=== PATIENT | female | born 1970 | race Caucasian/White ===

== ENCOUNTER 2017-02-15 19:20 | Emergency (ER) | payer OTHER ==
--- NOTE | 2017-02-15 20:05 | DIAGNOSTIC IMAGING REPORT ---
PROCEDURE: XR CHEST 1 VIEW INDICATION: SHORTNESS OF BREATH TECHNIQUE: Single view chest. 1952 hours COMPARISON: 02/29/2016 FINDINGS: The cardiopulmonary contour and central vasculature are stable, within normal limits. The lungs are clear without focal consolidation, pleural effusion or pneumothorax. The osseous structures are intact. Moderate lower thoracic dextroscoliosis contributes to mild thoracic asymmetry. IMPRESSION: 1. No evidence of acute cardiopulmonary disease.
--- NOTE | 2017-02-15 21:41 | ED ORDER SUMMARY ---
..... Patient: SHASTA MANJARREZ [facility] VisitID: [id number] [address] [place] [address] 46y, F Registration Date/Time: 02/15/2017 ORDER SHEET Weight: 84.3 kg (stated) Allergies: Apresoline, IV Contrast GENERAL ORDERS: Chest 1V Urgent (19:34 02/15/2017 Sayda MCLEAN) (Ack 19:45 AMcQuoid ER Tech1) (20:16 RFay) Stitch Bonding Machine Tender Helper (Continuous) (19:34 02/15/2017 Sayda MCLEAN) (Ack 19:46 AMcQuoid ER Tech1) (20:41 CFalkner R.N.) CBC w Diff Urgent (19:35 02/15/2017 Sayda MCLEAN) (19:44 AMcQuoid ER Tech1) CMP Urgent (19:35 02/15/2017 Sayda MCLEAN) (19:44 AMcQuoid ER Tech1) UA-Culture if indicated Urgent (19:35 02/15/2017 Sayda MCLEAN) (Ack 19:45 AMcQuoid ER Tech1) (20:42 CFalkner R.N.) PT with INR Urgent (19:35 02/15/2017 Sayda MCLEAN) (19:44 AMcQuoid ER Tech1) PTT Urgent (19:35 02/15/2017 Sayda MCLEAN) (19:44 AMcQuoid ER Tech1) D-Dimer Urgent (19:35 02/15/2017 Sayda MCLEAN) (19:44 AMcQuoid ER Tech1) Amylase Urgent (19:35 02/15/2017 Sayda MCLEAN) (19:44 AMcQuoid ER Tech1) Lipase Urgent (19:35 02/15/2017 Sayda MCLEAN) (19:44 AMcQuoid ER Tech1) CPK Urgent (19:35 02/15/2017 Sayda MCLEAN) (19:44 AMcQuoid ER Tech1) Troponin-I Urgent (19:35 02/15/2017 Sayda MCLEAN) (19:45 AMcQuoid ER Tech1) Urine Urgent (19:35 02/15/2017 Sayda MCLEAN) (Ack 19:45 AMcQuoid ER Tech1) (20:42 CFalkner R.N.) BNP Urgent (19:35 02/15/2017 Sayda MCLEAN) (19:45 AMcQuoid ER Tech1) Oxygen (2 L/min) (NC) (19:35 02/15/2017 Sayda MCLEAN) (Ack 19:46 AMcQuoid ER Tech1) (20:41 CFalkner R.N.) Pulse oximeter (19:35 02/15/2017 Sayda MCLEAN) (19:41 HSoule) EKG - ER Stat (19:35 02/15/2017 Sayda MCLEAN) (Ack 19:46 MpQuoid ER Tech1) (2:59 JRomanelli R.N.) US Venous Left Urgent (19:59 02/15/2017 Sayda MCLEAN) (Ack 20:03 AMcQuoid ER Tech1) (3:01 JRomanelli R.N.) MEDICATION ORDERS: IV FLUIDS: IV Saline Lock (19:35 02/15/2017 Sayda MCLEAN) (19:41 HSoule) ORDER SHEET NOTES: [Electronically signed by Giovanny Velasquez R.N. (03:04 02/16/2017)] [Electronically signed by Jose Armando Ivy MD (21:32 02/16/2017)] [Electronically locked/signed by Giovanny Velasquez R.N. (03:04 02/16/2017)]
--- NOTE | 2017-02-15 21:41 | ED ORDER SUMMARY ---
..... Patient: SHASTA MANJARREZ OrderSheet [facility] VisitID: [id number] [address] [place] [address] 46y, F Registration Date/Time: 02/15/2017 ORDER SHEET Weight: 84.3 kg (stated) Allergies: Apresoline, IV Contrast GENERAL ORDERS: Chest 1V Urgent (19:34 02/15/2017 Sayda MCLEAN) (Ack 19:45 AMcQuoid ER Tech1) (20:16 RFay) Shucker (Continuous) (19:34 02/15/2017 Sayda MLCEAN) (Ack 19:46 AMcQuoid ER Tech1) (20:41 CFalkner R.N.) CBC w Diff Urgent (19:35 02/15/2017 Sayda MCLEAN) (19:44 AMcQuoid ER Tech1) CMP Urgent (19:35 02/15/2017 Sayda MCLEAN) (19:44 AMcQuoid ER Tech1) UA-Culture if indicated Urgent (19:35 02/15/2017 Sayda MCLEAN) (Ack 19:45 AMcQuoid ER Tech1) (20:42 CFalkner R.N.) PT with INR Urgent (19:35 02/15/2017 Sayda MCLEAN) (19:44 AMcQuoid ER Tech1) PTT Urgent (19:35 02/15/2017 Sayda MCLEAN) (19:44 AMcQuoid ER Tech1) D-Dimer Urgent (19:35 02/15/2017 Sayda MCLEAN) (19:44 AMcQuoid ER Tech1) Amylase Urgent (19:35 02/15/2017 Sayda MCLEAN) (19:44 AMcQuoid ER Tech1) Lipase Urgent (19:35 02/15/2017 Sayda MCLEAN) (19:44 AMcQuoid ER Tech1) CPK Urgent (19:35 02/15/2017 Sayda MCLEAN) (19:44 AMcQuoid ER Tech1) Troponin-I Urgent (19:35 02/15/2017 Sayda MCLEAN) (19:45 AMcQuoid ER Tech1) Urine Urgent (19:35 02/15/2017 Sayda MCLEAN) (Ack 19:45 AMcQuoid ER Tech1) (20:42 CFalkner R.N.) BNP Urgent (19:35 02/15/2017 Sayda MCLEAN) (19:45 AMcQuoid ER Tech1) Oxygen (2 L/min) (NC) (19:35 02/15/2017 Sayda MCLEAN) (Ack 19:46 AMcQuoid ER Tech1) (20:41 CFalkner R.N.) Pulse oximeter (19:35 02/15/2017 Sayda MCLEAN) (19:41 HSoule) EKG - ER Stat (19:35 02/15/2017 Sayda MCLEAN) (Ack 19:46 MpQuoid ER Tech1) (2:59 JRomanelli R.N.) US Venous Left Urgent (19:59 02/15/2017 Sayda MCLEAN) (Ack 20:03 AMcQuoid ER Tech1) (3:01 JRomanelli R.N.) MEDICATION ORDERS: IV FLUIDS: IV Saline Lock (19:35 02/15/2017 Sayda MCLEAN) (19:41 HSoule) ORDER SHEET NOTES: [Electronically signed by Giovanny Velasquez R.N. (03:04 02/16/2017)] [Electronically signed by Jose Armando Ivy MD (21:32 02/16/2017)] [Electronically locked/signed by Giovanny Velasquez R.N. (03:04 02/16/2017)]
--- NOTE | 2017-02-15 21:41 | ED NURSING NOTES ---
Clinical Report - Nurses [facility] [address] [place] [address] 02/15/2017 19:21 Patient: SHASTA MANJARREZ TRIAGE Triage time 19:28 Feb 15 2017. Acuity: LEVEL 3. Chief Complaint: SHORTNESS OF BREATH. Alert. NICOLETTE COMA SCORE: Nicolette Coma Scale: 15- eyes open spontaneously (4); best verbal response- oriented x 4 (5); best motor response- obeys commands (6). --19:42 Giovanny Velasquez R.N. 19:28 02/15/17. BP: 123/73. HR: 108. RR: 18. O2 saturation: 99% on room air. Temp: 98.1 F (oral). Pain level now: 4/10. Additional comments: Tingling/Swelling (L) Knee. --19:42 Giovanny Velasquez R.N. Weight: 84.3 kg stated. Height/Length: 64 inches Per Patient. BMI: 31.9. --19:29 Giovanny Velasquez R.N. Medications Lisinopril Oral 10 mg, daily. Omeprazole Oral 20 mg, daily. PredniSONE Oral 8 mg, daily. Remeron Oral 7.5 mg, daily. Warfarin Sodium Oral 4 mg, daily (M,W,F then 5mg on the other days). Xanax Oral, as needed. --19:35 Giovanny Velasquez R.N. Flonase Nasal 2 sprays, daily. --19:40 Giovanny Velasquez R.N. Allergies Apresoline. Definite Severe IV Contrast. Definite Severe --19:35 Giovanny Velasquez R.N. The following entry was struck and corrected by Giovanny Velasquez R.N., 19:40 (02/15/17) Reason for correction - other(correction). <<STRICKEN ENTRY-- IV Contrast. --19:35 Giovanny Velasquez R.N. --END STRIKE>>. Medication/allergy information source: the patient. --19:42 Giovanny Velasquez R.N. History Arrived by private vehicle. Historian: patient. Accompanied by spouse. Primary physician (Moira). ( Increased SOB and "massive swelling" behind the (L) knee. Also bilat Ear ache). Treatment VALET PARKER: None. SOCIAL HX: Light tobacco smoker (cigarette)- less than 1/2 a pack per day. No alcohol use or drug use. No infectious disease exposure. ABUSE ASSESSMENT: No report of abuse. SELF HARM ASSESSMENT: A self harm assessment was performed. The patient answered "no" to the question "Have you recently felt down, depressed, or hopeless?" and "Have you noticed less interest or pleasure in doing things?". FALL RISK ASSESSMENT: Fall risk assessment completed. No fall risk identified. NUTRITIONAL RISK ASSESSMENT: The nutritional risk assessment revealed no deficiencies. FUNCTIONAL ASSESSMENT: Functional assessment: no impairments noted. LEARNING NEEDS ASSESSMENT: The learning needs assessment revealed no barriers. SKIN INTEGRITY ASSESSMENT: Skin integrity risk assessment completed. No skin integrity risk identified. --19:42 Giovanny Velasquez R.N. PROBLEMS: Chest Wall Pain. DVT - Deep Venous Thrombosis. Cardiovascular Risk Factors. Pulmonary Embolism. Hypertension. Anxiety Reaction. Rheumatoid Arthritis. --19:38 Giovanny Velasquez R.N. ADDITIONAL SURGERIES: Right Knee surgery. Tonsillectomy. --19:38 Giovanny Velasquez R.N. Interventions ID band on patient. To treatment room. --19:42 Giovanny Velasquez R.N. PHYSICAL ASSESSMENT Ambulatory to room. GENERAL / NEURO / PSYCH: Alert. Oriented X 4. HEENT: Mucous membranes are pink. RESPIRATORY: No respiratory distress. Respirations not labored. CVS: Cardiac rhythm: sinus tachycardia. GI / : Abdomen soft. Bowel sounds within normal limits. SKIN: Skin is warm and dry. Normal skin turgor. --19:43 Giovanny Velasquez R.N. NURSING PROGRESS NOTES 19:36 02/15/2017 Site #1 started via IV in the right antecubital space with an 20g angiocath, with aseptic technique and good blood return; one attempt. Blood drawn: rainbow set. Labeled in the presence of the patient and sent to the lab. Saline lock flushed with 10 mL saline. --19:41 Vanessa Titus Patient gowned. Reassurance given. Patient identifiers checked. Call light placed in reach. Side rails up. Bed placed in lowest position. Brakes of bed on. Patient ready for evaluation- chart flagged and ED physician notified. --19:43 Giovanny Velasquez R.N. 20:31 02/15/17. BP: 120/77. HR: 90. RR: 16. O2 saturation: 98%. --20:32 Giovanny Velasquez R.N. 20:35 02/15/17. Critical value relayed to ED by Ailin Sutton. Critical value received by Giovanny Velasquez RN. D-Dimer--5.24. --20:35 Giovanny Velasquez R.N. EKG time: (19:59). EKG was performed by a tech and shown to the ED physician. --23:36 Chikis Ervin 21:30 02/15/17. BP: 127/63. HR: 97. RR: 16. O2 saturation: 99% on nasal cannula. Pain level now: 0/10. --02:50 Giovanny Velasquez R.N. 22:05 02/15/2017 Site #1 removed upon discharge. Catheter intact. Pressure dressing, bandaid and bandage applied. --03:01 Giovanny Velasquez R.N. 20:45. ( dentures lab technician in room doing procedure). --03:03 Giovanny Velasquez R.N. DISPOSITION / DISCHARGE Departure time: 2209. --22:41 Giovanny Velasquez R.N. 22:00 02/15/17. BP: 120/77. HR: 85. RR: 16. O2 saturation: 99% on room air. Temp: 98.6 F (oral). Pain level now: 0/10. --02:53 Giovanny Velasquez R.N. 22:10. Condition at departure: improved. No learning barriers present. Discharge instructions provided and reviewed with the patient and spouse. Reviewed medication(s) (Continue your usually prescribed medications). Reviewed referral to family practice. Patient verbalized understanding. Written instructions provided in Syriac. The patient was discharged by the physician. She was discharged home and accompanied by spouse. She left the Emergency Department ambulatory and via private vehicle. Spouse driving. --02:59 Giovanny Velasquez R.N. Locked/Released at 02/16/2017 3:04 by Giovanny Velasquez R.N.
--- NOTE | 2017-02-15 21:41 | ED NURSING NOTES ---
Clinical Report - Nurses [facility] [address] [place] [address] 02/15/2017 19:21 Patient: SHASTA MANJARREZ TRIAGE Triage time 19:28 Feb 15 2017. Acuity: LEVEL 3. Chief Complaint: SHORTNESS OF BREATH. Alert. NICOLETTE COMA SCORE: Nicolette Coma Scale: 15- eyes open spontaneously (4); best verbal response- oriented x 4 (5); best motor response- obeys commands (6). --19:42 Giovanny Velasquez R.N. 19:28 02/15/17. BP: 123/73. HR: 108. RR: 18. O2 saturation: 99% on room air. Temp: 98.1 F (oral). Pain level now: 4/10. Additional comments: Tingling/Swelling (L) Knee. --19:42 Giovanny Velasquez R.N. Weight: 84.3 kg stated. Height/Length: 64 inches Per Patient. BMI: 31.9. --19:29 Giovanny Velasquez R.N. Medications Lisinopril Oral 10 mg, daily. Omeprazole Oral 20 mg, daily. PredniSONE Oral 8 mg, daily. Remeron Oral 7.5 mg, daily. Warfarin Sodium Oral 4 mg, daily (M,W,F then 5mg on the other days). Xanax Oral, as needed. --19:35 Giovanny Velasquez R.N. Flonase Nasal 2 sprays, daily. --19:40 Giovanny Velasquez R.N. Allergies Apresoline. Definite Severe IV Contrast. Definite Severe --19:35 Giovanny Velasquez R.N. The following entry was struck and corrected by Giovanny Velasquez R.N., 19:40 (02/15/17) Reason for correction - other(correction). <<STRICKEN ENTRY-- IV Contrast. --19:35 Giovanny Velasquez R.N. --END STRIKE>>. Medication/allergy information source: the patient. --19:42 Giovanny Velasquez R.N. History Arrived by private vehicle. Historian: patient. Accompanied by spouse. Primary physician (Moira). ( Increased SOB and "massive swelling" behind the (L) knee. Also bilat Ear ache). Treatment EDUCATION AND DEVELOPMENT MANAGER: None. SOCIAL HX: Light tobacco smoker (cigarette)- less than 1/2 a pack per day. No alcohol use or drug use. No infectious disease exposure. ABUSE ASSESSMENT: No report of abuse. SELF HARM ASSESSMENT: A self harm assessment was performed. The patient answered "no" to the question "Have you recently felt down, depressed, or hopeless?" and "Have you noticed less interest or pleasure in doing things?". FALL RISK ASSESSMENT: Fall risk assessment completed. No fall risk identified. NUTRITIONAL RISK ASSESSMENT: The nutritional risk assessment revealed no deficiencies. FUNCTIONAL ASSESSMENT: Functional assessment: no impairments noted. LEARNING NEEDS ASSESSMENT: The learning needs assessment revealed no barriers. SKIN INTEGRITY ASSESSMENT: Skin integrity risk assessment completed. No skin integrity risk identified. --19:42 Giovanny Velasquez R.N. PROBLEMS: Chest Wall Pain. DVT - Deep Venous Thrombosis. Cardiovascular Risk Factors. Pulmonary Embolism. Hypertension. Anxiety Reaction. Rheumatoid Arthritis. --19:38 Giovanny Velasquez R.N. ADDITIONAL SURGERIES: Right Knee surgery. Tonsillectomy. --19:38 Giovanny Velasquez R.N. Interventions ID band on patient. To treatment room. --19:42 Giovanny Velasquez R.N. PHYSICAL ASSESSMENT Ambulatory to room. GENERAL / NEURO / PSYCH: Alert. Oriented X 4. HEENT: Mucous membranes are pink. RESPIRATORY: No respiratory distress. Respirations not labored. CVS: Cardiac rhythm: sinus tachycardia. GI / : Abdomen soft. Bowel sounds within normal limits. SKIN: Skin is warm and dry. Normal skin turgor. --19:43 Giovanny Velasquez R.N. NURSING PROGRESS NOTES 19:36 02/15/2017 Site #1 started via IV in the right antecubital space with an 20g angiocath, with aseptic technique and good blood return; one attempt. Blood drawn: rainbow set. Labeled in the presence of the patient and sent to the lab. Saline lock flushed with 10 mL saline. --19:41 Vanessa Titus Patient gowned. Reassurance given. Patient identifiers checked. Call light placed in reach. Side rails up. Bed placed in lowest position. Brakes of bed on. Patient ready for evaluation- chart flagged and ED physician notified. --19:43 Giovanny Velasquez R.N. 20:31 02/15/17. BP: 120/77. HR: 90. RR: 16. O2 saturation: 98%. --20:32 Giovanny Velasquez R.N. 20:35 02/15/17. Critical value relayed to ED by Ailin Sutton. Critical value received by Giovanny Velasquez RN. D-Dimer--5.24. --20:35 Giovanny Velasquez R.N. EKG time: (19:59). EKG was performed by a tech and shown to the ED physician. --23:36 Chikis Evrin 21:30 02/15/17. BP: 127/63. HR: 97. RR: 16. O2 saturation: 99% on nasal cannula. Pain level now: 0/10. --02:50 Giovanny Velasquez R.N. 22:05 02/15/2017 Site #1 removed upon discharge. Catheter intact. Pressure dressing, bandaid and bandage applied. --03:01 Giovanny Vleasquez R.N. 20:45. ( senior technical specialist in room doing procedure). --03:03 Giovanny Velasquez R.N. DISPOSITION / DISCHARGE Departure time: 2209. --22:41 Giovanny Velasquez R.N. 22:00 02/15/17. BP: 120/77. HR: 85. RR: 16. O2 saturation: 99% on room air. Temp: 98.6 F (oral). Pain level now: 0/10. --02:53 Giovanny Velasquez R.N. 22:10. Condition at departure: improved. No learning barriers present. Discharge instructions provided and reviewed with the patient and spouse. Reviewed medication(s) (Continue your usually prescribed medications). Reviewed referral to family practice. Patient verbalized understanding. Written instructions provided in Romansh. The patient was discharged by the physician. She was discharged home and accompanied by spouse. She left the Emergency Department ambulatory and via private vehicle. Spouse driving. --02:59 Giovanny Velasquez R.N. Locked/Released at 02/16/2017 3:04 by Giovanny Velasquez R.N.
--- NOTE | 2017-02-15 21:41 | ED CLINICAL REPORT ---
Clinical Report - Physicians/Mid Levels [facility] [address] [place] [address] 02/15/2017 19:21 Patient: SHASTA MANJARREZ Time Seen: 19:34. Arrived- By private vehicle. Historian- patient. HISTORY OF PRESENT ILLNESS Chief Complaint: DYSPNEA. This started just prior to arrival and is still present but is better now. It was abrupt in onset. The dyspnea is described as mild. The patient has had a cough, left foot swelling and anxiety and experienced sweating episodes. She has had scant amounts of sputum (she attributes this a current sinus and bilateral ear infection). No fever, wheezing, chills or dyspnea on exertion. No chest pain or discomfort. (she attributes her SOB to anxiety). REVIEW OF SYSTEMS Last normal menstrual period was 2 weeks ago. All systems otherwise negative, except as recorded above. PAST HISTORY PCP - Karen She reports a history of significant anemia. She says that her hemoglobin and hematocrit today are stable for her. She takes iron sulfate for this. Problems: Chest Wall Pain. Back Pain. DVT - Deep Venous Thrombosis. Cardiovascular Risk Factors. Pulmonary Embolism. Arthritis. Hypertension. Anxiety Reaction. Rheumatoid Arthritis. Additional Surgeries: Knee Surgery. Right Knee surgery. Tonsillectomy. Medications: Flonase Nasal 2 sprays, daily. Lisinopril Oral 10 mg, daily. Omeprazole Oral 20 mg, daily. PredniSONE Oral 8 mg, daily. Remeron Oral 7.5 mg, daily. Warfarin Sodium Oral 4 mg, daily (M,W,F then 5mg on the other days). Xanax Oral, as needed. Allergies: Apresoline. Definite Severe IV Contrast. Definite Severe. SOCIAL HISTORY Current every day heavy tobacco smoker (cigarette)- less than 1 pack per day. No alcohol use or drug use. Is a local resident. She lives with spouse. FAMILY HISTORY Hypertension in first-degree relative (mother, father and sibling) and grandparent; premature onset heart disease in first-degree relative (father); stroke in first-degree relative (father) and grandparent; cancer in first-degree relative (mother). ADDITIONAL NOTES The nursing notes have been reviewed. PHYSICAL EXAM Vital Signs: 02/15/2017 19:28 BP: 123/73. HR: 108. RR: 18. O2 saturation: 99%. Temp: 98.1 F. Pain level now: 10. Have been reviewed. Appearance: Alert. Anxious. Eyes: Pupils equal, round and reactive to light. ENT: Pharynx normal. Uvula midline. Neck: Normal inspection. No jugular venous distention. Neck supple. CVS: Normal heart rate and rhythm. Heart sounds normal. Respiratory: No respiratory distress. Breath sounds normal. Abdomen: Soft and nontender. No organomegaly. Back: Normal inspection. No CVA tenderness. Skin: Skin warm and dry. Normal skin color. Normal skin turgor. Extremities: Extremities exhibit normal ROM. No calf tenderness. Left knee: mild tenderness and severe swelling. Neurovascular intact distally. No ligamentous laxity present. No joint effusion. No erythema. LABS, X-RAYS, AND EKG EKG: Rate: 107. Prior EKG unavailable. The study has been independently viewed by me. Chest X-ray: (IMPRESSION: 1. No evidence of acute cardiopulmonary disease.). The X-rays were interpreted by the radiologist and contemporaneously by me. Duplex Ultrasound: Left lower extremity study. Negative results. The study was independently viewed by me. Laboratory Tests: CBC w Diff: (IMANI: 02/15/2017 19:35) ( MsgRcvd 02/15/2017 21:02) Final results Test Result Flag Units (Reference) WHITE BLOOD COUNT 9.7 K/uL (4.5-11.5) RED BLOOD COUNT 5.28 H M/uL (4.00-5.20) HEMOGLOBIN 8.6 L gm/dL (12.0-16.0) HEMATOCRIT 29.3 L % (36.0-46.0) MEAN CELL VOLUME 56 L fL (80-100) MEAN CORPUSCULAR HGB 16 L pg (26-34) MEAN CORPUSCULAR HGB CONC 30 L g/dL (31-37) RED CELL DISTRIBUTION WIDTH 20.7 H % (11.6-14.8) PLATELET COUNT 388 K/uL (150-400) NEUTROPHIL % 81.0 H % (50-75) LYMPH % 13.6 L % (25-40) MONO % 4.8 % (3-14) EOSINOPHIL % 0.3 % (0-4) BASOPHIL % 0.3 % (0-2) RBC MORPHOLOGY 1+ SCHISTOCYTES~~3+ ANISOCYTES~~3+ HYPOCHROMIA~~1+ OVALOCYTES~~1+ TARGETS~~4+ MICROCYTOSIS~~PLTS ADQ PT with INR: (IMANI: 02/15/2017 19:35) ( MsgRcvd 02/15/2017 20:33) Final results Test Result Flag Units (Reference) INR 2.5 H (0.8-1.2) Low Intensity Therapy: INR 1.5-2.0 PT range 18.5-23.1Mod.Intensity Therapy: INR 2.0-3.0 PT range 23.1-31.5High Intensity Therapy: INR 2.5-3.5 PT range 27.4-35.5High Intensity Therapy 2: INR 3.0-4.0 PT range 31.5-39.3 APTT 33 SECONDS (24-34) D-DIMER QUANTITATIVE 5.24 *H ug/mLFEU (0.27-0.52) CRITICAL RESULTS CALLEDCalled to [facility] 02/15/172031Were 2 patient identifiers used? YWas the result read back? YThe primary value of this quantitative assay relates toits negative predictive value (i.e. exclusion) of pulmonaryembolism/deep vein thrombosis/DIC.Elevated levels of d-dimer may also occur with:, age, cancer, inflammation, liver disease,post-op, infection, hematoma, coronary disease, peripheralarteriopathy, bleeding disorders and thrombolytic treatment.Results should be correlated with other clinical andradiological data.Testing Methodology: Latex Immunoassay BNP: (IMANI: 02/15/2017 19:35) ( [facility]16) Final results Test Result Flag Units (Reference) B-TYPE NATRIURETIC PEPTIDE < 5.0 L pg/ml (5-100) CMP: (IMANI: 02/15/2017 19:35) ( MsgRcvd 02/15/2017 20:39) Final results Test Result Flag Units (Reference) GLUCOSE 120 H mg/dL (70-110) BUN 11 mg/dL (7-18) CREATININE 0.7 mg/dL (0.6-1.3) Estimated GFR >60 mL/min Estimated GFR- >60 mL/min Note: Persistent reduction over 3 months in eGFR<60 mL/min/1.73 m2 defines CKD. Patients with eGFR values>=60 mL/min/1.73 m2 may also have CKD if evidence ofpersistent proteinuria. Additional information may be foundat www.kidney.org. SODIUM 137 mmol/L (136-145) POTASSIUM 4.1 mmol/L (3.5-5.1) CHLORIDE 102 mmol/L (98-107) CARBON DIOXIDE 24 mmol/L (21-32) CALCIUM 9.0 mg/dL (8.5-10.1) TOTAL PROTEIN 7.5 g/dL (6.4-8.2) ALBUMIN 3.7 g/dL (3.3-5.0) BILIRUBIN, TOTAL 0.3 mg/dL (0.0-1.0) ALKALINE PHOSPHATASE 71 U/L (46-116) AST (SGOT) 16 U/L (15-37) ALT (SGPT) 28 U/L (12-78) LIPASE 300 U/L (73-393) AMYLASE 65 U/L (25-115) CPK 35 U/L (24-260) TROPONIN I <0.05 L ng/mL (0.00-1.5) TROPONIN REFERENCE RANGE:<0.1 NEGATIVE0.1-1.5 INDETERMINANT>1.5 POSITIVE . PROGRESS AND PROCEDURES Course of Care: We discussed potential benefits and risks of CT angiogram and imaging. The patient says that she does not have chest pain does not feel shortness of breath. She does not want to have CT imaging done and she has had many of these in the past and she feels that since she is therapeutic on Coumadin the risk of CT imaging outweighs the potential benefits. She acknowledges the risk of a missed or erroneous diagnosis. She is having difficulty breathing (she says that this is completely resolved. She attributed that that she was feeling earlier to her anxiety.). Patient/family counseled. Old medical records ordered. Disposition: Discharged. Condition: stable. CLINICAL IMPRESSION Chronic anemia. Rheumatoid arthritis involving the left knee. INSTRUCTIONS Do not smoke- benefits of smoking cessation discussed (>3 -10 minutes). Seek medical help to quit smoking. Warnings: Further evaluation is necessary. GENERAL WARNINGS: Return or contact your physician immediately if your condition worsens or changes unexpectedly, if not improving as expected, or if other problems arise. Your Current Medications: CONTINUE TAKING THE FOLLOWING MEDICATIONS: Flonase Nasal : 2 sprays daily. Lisinopril Oral : 10 mg daily. Omeprazole Oral : 20 mg daily. PredniSONE Oral : 8 mg daily. Remeron Oral : 7.5 mg daily. Warfarin Sodium Oral : 4 mg daily, M,W,F then 5mg on the other days. Xanax Oral : prn. Follow-up: Follow up with your doctor. Understanding of the discharge instructions verbalized by patient and family. Follow-up with: Joel Maynard MD, [facility], , [address] [place] [address] Follow up in seven days. Call for the next available appointment. (Electronically signed by Jose Armando Ivy MD 02/16/2017 21:32)
--- NOTE | 2017-02-15 22:08 | DIAGNOSTIC IMAGING REPORT ---
PROCEDURE: US VENOUS - LEFT EXT INDICATION: PAIN TECHNIQUE: Duplex sonography of the deep venous system in the left lower extremity was performed. Compression and augmentation techniques were used. COMPARISON: 02/19/2014 FINDINGS: Each interrogated segment of deep vein from the common femoral vein into the calf veins demonstrates normal compressibility, augmentation and/or color Doppler flow without filling defect. No evidence of significant soft-tissue edema, soft-tissue mass or cyst. IMPRESSION: 1. No deep venous thrombosis in the left lower extremity.
--- NOTE | 2017-02-16 21:32 | ED MED RECONCILIATION SUMMARY ---
Patient: NONI MANJARREZNIFER Sita Medication Reconciliation Report [facility] VisitID: [id number] [address] [place] [address] 46y, F Registration Date/Time: 02/15/2017 Weight: 84.3 kg Height/Length: 64 in. BMI: 31.9 ALLERGIES: Apresoline, IV Contrast The patient's Home Medications are listed below: CONTINUE TAKING THE FOLLOWING MEDICATIONS: Flonase Nasal 2 sprays, daily Lisinopril Oral 10 mg, daily Omeprazole Oral 20 mg, daily PredniSONE Oral 8 mg, daily Remeron Oral 7.5 mg, daily Warfarin Sodium Oral 4 mg, daily, M,W,F then 5mg on the other days Xanax Oral The source(s) of the original Home Medication information: patient The following Medications were given to the patient in the Emergency Department: None. The following Medications were prescribed to the patient: None.
--- NOTE | 2017-02-16 21:32 | ED MAR SUMMARY ---
..... Medication Administration Record [facility] [address] [place], [place] [id number] Patient: SHASTA MANJARREZ Visit ID: [id number] 46y, F Weight: 84.3 kg Height/Length: 64 in BMI: 31.9 ALLERGIES: Apresoline, IV Contrast
--- NOTE | 2017-02-16 21:32 | ED DISCHARGE INSTRUCTIONS ---
Patient: SHASTA MANJARREZ General Instructions [facility] VisitID: [id number] [address] [place] [address] 46y, F Registration Date/Time: 02/15/2017 Chronic anemia. Rheumatoid arthritis involving the left knee. INSTRUCTIONS Do not smoke- benefits of smoking cessation discussed (>3 -10 minutes). Seek medical help to quit smoking. Warnings: Further evaluation is necessary. GENERAL WARNINGS: Return or contact your physician immediately if your condition worsens or changes unexpectedly, if not improving as expected, or if other problems arise. Your Current Medications: CONTINUE TAKING THE FOLLOWING MEDICATIONS: Flonase Nasal : 2 sprays daily. Lisinopril Oral : 10 mg daily. Omeprazole Oral : 20 mg daily. PredniSONE Oral : 8 mg daily. Remeron Oral : 7.5 mg daily. Warfarin Sodium Oral : 4 mg daily, M,W,F then 5mg on the other days. Xanax Oral : prn. Follow-up: Follow up with your doctor. Understanding of the discharge instructions verbalized by patient and family. Follow-up with: Joel Maynard MD, [facility], , [address] [place], [place] [id number] Follow up in seven days. Call for the next available appointment. ADDITIONAL INFORMATION How To Quit Smoking Smoking is one of the hardest habits to break. About half of all those who have ever smoked have been able to quit, and most of those (about 70%) who still smoke want to quit. Here are some of the best ways to stop smoking. Keep Trying: It takes most smokers about 8 tries before they are finally able to fully quit. So, the more often you try and fail, the better your chance of quitting the next time! So, don't give up! Go Cold [place]: Most ex-smokers quit cold turkey. Trying to cut back gradually doesn't seem to work as well, perhaps because it continues the smoking habit. Also, it is possible to fool yourself by inhaling more while smoking fewer cigarettes. This results in the same amount of nicotine in your body! Get Support: Support programs can make an important difference, especially for the heavy smoker. These groups offer lectures, methods to change your behavior and peer support. Call the free national Quitline for more information. 124-LSOW-TPP (170-624-2373). Low-cost or free programs are offered by many hospitals, local chapters of the [place] [employer] (152-873-6695) and the [place] [employer] (427-760-8099). Support at home is important too. Non-smokers can help by offering praise and encouragement. If the smoker fails to quit, encourage them to try again! Ngfg-Wun-Kqewgmf Medicines: For those who can't quit on their own, Nicotine Replacement Therapy (NRT) may make quitting much easier. Certain aids such as the nicotine patch, gum and lozenge are available without a prescription. However, it is best to use these under the guidance of your doctor. The skin patch provides a steady supply of nicotine to the body. Nicotine gum and lozenge gives temporary bursts of low levels of nicotine. Both methods take the edge off the craving for cigarettes. WARNING: If you feel symptoms of nicotine overdose, such as nausea, vomiting, dizziness, weakness, or fast heartbeat, stop using these and see your doctor. Prescription Medicines: After evaluating your smoking patterns and prior attempts at quitting, your doctor may offer a prescription medicine such as bupropion (Zyban, Wellbutrin), varenicline (Chantix, Champix), a niocotine inhaler or nasal spray. Each has its unique advantage and side effects which your doctor can review with you. Health Benefits Of Quitting: The benefits of quitting start right away and keep improving the longer you go without smokin minutes: blood pressure and pulse return to normal 8 hours: oxygen levels return to normal 2 days: ability to smell and taste begins to improve as damaged nerves start to regrow 2-3 weeks: circulation and lung function improves 1-9 months: decreased cough, congestion and shortness of breath; less tired 1 year: risk of heart attack decreases by half 5 years: risk of lung cancer decreases by half; risk of stroke becomes the same as a non-smoker For information about how to quit smoking, visit the following links: National Cancer [place] , Clearing the Air, Quit Smoking Today - an online booklet. http://www.smokefree.gov/pubs/clearing_the_air.pdf Smokefree.gov http://smokefree.gov/ QuitNet http://www.quitnet.com/ You have been given the following additional information: Smoking Cessation (Electronically signed by Jose Armando Ivy MD 02/16/2017 21:32)
--- NOTE | 2017-02-16 21:32 | ED MAR SUMMARY ---
..... Medication Administration Record [facility] [address], [place] [id number] Patient: SHASTA MANJARREZ Visit ID: [id number] 46y, F Weight: 84.3 kg Height/Length: 64 in BMI: 31.9 ALLERGIES: Apresoline, IV Contrast
--- NOTE | 2017-02-16 21:32 | ED DISCHARGE INSTRUCTIONS ---
Patient: SHASTA MANJARREZ General Instructions [facility] VisitID: [id number] [address] [place] [address] 46y, F Registration Date/Time: 02/15/2017 Chronic anemia. Rheumatoid arthritis involving the left knee. INSTRUCTIONS Do not smoke- benefits of smoking cessation discussed (>3 -10 minutes). Seek medical help to quit smoking. Warnings: Further evaluation is necessary. GENERAL WARNINGS: Return or contact your physician immediately if your condition worsens or changes unexpectedly, if not improving as expected, or if other problems arise. Your Current Medications: CONTINUE TAKING THE FOLLOWING MEDICATIONS: Flonase Nasal : 2 sprays daily. Lisinopril Oral : 10 mg daily. Omeprazole Oral : 20 mg daily. PredniSONE Oral : 8 mg daily. Remeron Oral : 7.5 mg daily. Warfarin Sodium Oral : 4 mg daily, M,W,F then 5mg on the other days. Xanax Oral : prn. Follow-up: Follow up with your doctor. Understanding of the discharge instructions verbalized by patient and family. Follow-up with: Joel Maynard MD, [facility], , [address] [place], [place] [id number] Follow up in seven days. Call for the next available appointment. ADDITIONAL INFORMATION How To Quit Smoking Smoking is one of the hardest habits to break. About half of all those who have ever smoked have been able to quit, and most of those (about 70%) who still smoke want to quit. Here are some of the best ways to stop smoking. Keep Trying: It takes most smokers about 8 tries before they are finally able to fully quit. So, the more often you try and fail, the better your chance of quitting the next time! So, don't give up! Go Cold [place]: Most ex-smokers quit cold turkey. Trying to cut back gradually doesn't seem to work as well, perhaps because it continues the smoking habit. Also, it is possible to fool yourself by inhaling more while smoking fewer cigarettes. This results in the same amount of nicotine in your body! Get Support: Support programs can make an important difference, especially for the heavy smoker. These groups offer lectures, methods to change your behavior and peer support. Call the free national Quitline for more information. 053-YAUL-LTC (567-051-4905). Low-cost or free programs are offered by many hospitals, local chapters of the [place] [employer] (342-820-9290) and the [place] [employer] (422-647-4001). Support at home is important too. Non-smokers can help by offering praise and encouragement. If the smoker fails to quit, encourage them to try again! Vbay-Vlg-Pnktjnp Medicines: For those who can't quit on their own, Nicotine Replacement Therapy (NRT) may make quitting much easier. Certain aids such as the nicotine patch, gum and lozenge are available without a prescription. However, it is best to use these under the guidance of your doctor. The skin patch provides a steady supply of nicotine to the body. Nicotine gum and lozenge gives temporary bursts of low levels of nicotine. Both methods take the edge off the craving for cigarettes. WARNING: If you feel symptoms of nicotine overdose, such as nausea, vomiting, dizziness, weakness, or fast heartbeat, stop using these and see your doctor. Prescription Medicines: After evaluating your smoking patterns and prior attempts at quitting, your doctor may offer a prescription medicine such as bupropion (Zyban, Wellbutrin), varenicline (Chantix, Champix), a niocotine inhaler or nasal spray. Each has its unique advantage and side effects which your doctor can review with you. Health Benefits Of Quitting: The benefits of quitting start right away and keep improving the longer you go without smokin minutes: blood pressure and pulse return to normal 8 hours: oxygen levels return to normal 2 days: ability to smell and taste begins to improve as damaged nerves start to regrow 2-3 weeks: circulation and lung function improves 1-9 months: decreased cough, congestion and shortness of breath; less tired 1 year: risk of heart attack decreases by half 5 years: risk of lung cancer decreases by half; risk of stroke becomes the same as a non-smoker For information about how to quit smoking, visit the following links: National Cancer [place] , Clearing the Air, Quit Smoking Today - an online booklet. http://www.smokefree.gov/pubs/clearing_the_air.pdf Smokefree.gov http://smokefree.gov/ QuitNet http://www.quitnet.com/ You have been given the following additional information: Smoking Cessation (Electronically signed by Jose Armando Ivy MD 02/16/2017 21:32)
--- NOTE | 2017-02-16 21:32 | ED MED RECONCILIATION SUMMARY ---
Patient: NONI MANJARREZNIFER Sita Medication Reconciliation Report [facility] VisitID: [id number] [address] [place] [address] 46y, F Registration Date/Time: 02/15/2017 Weight: 84.3 kg Height/Length: 64 in. BMI: 31.9 ALLERGIES: Apresoline, IV Contrast The patient's Home Medications are listed below: CONTINUE TAKING THE FOLLOWING MEDICATIONS: Flonase Nasal 2 sprays, daily Lisinopril Oral 10 mg, daily Omeprazole Oral 20 mg, daily PredniSONE Oral 8 mg, daily Remeron Oral 7.5 mg, daily Warfarin Sodium Oral 4 mg, daily, M,W,F then 5mg on the other days Xanax Oral The source(s) of the original Home Medication information: patient The following Medications were given to the patient in the Emergency Department: None. The following Medications were prescribed to the patient: None.
== END 2017-02-15 22:10 | disposition home or self-care (01) ==
LOC: ED SRH 19:20
DX: D64.9 Anemia, unspecified (principal); M06.9 Rheumatoid arthritis, unspecified; R06.00 Dyspnea, unspecified; F41.9 Anxiety disorder, unspecified; I10 Essential (primary) hypertension; Z86.711 Personal history of pulmonary embolism; Z86.718 Personal history of other venous thrombosis and embolism; Z79.01 Long term (current) use of anticoagulants; Z79.899 Other long term (current) drug therapy; Z72.0 Tobacco use